=== PATIENT | female | born 2000 | race Caucasian/White ===

== ENCOUNTER 2020-12-17 07:26 | Day surgery (SDC) | payer OTHER ==
[~2020-12-17] VITALS: Ht 129.6 cm; Wt 65.7 kg
[2020-12-17] VITALS (9 sets, daily range): BP systolic 93–110; BP diastolic 48–73; PULSE 54–63; TEMP 98.5–99.1
[~2020-12-17 07:26] MED LIST: NO HOME MEDICATIONS
--- NOTE | 2020-12-17 07:45 | NUR ---
Patient arrived to floor escorted by ED staff. Changed and sitting in bed, patient reports no pain at this time. IV placed in LAC, 20G diffusics in one attempt, patient tolerated well.
[2020-12-17 08:32] LABS: COLLECTION METHOD CLEAN CATCH
[2020-12-17 08:42] LABS: MUCOUS Present /lpf; PH 5 (5-8); URINE APPEARANCE Hazy; URINE BACTERIA Rare /hpf; URINE BILIRUBIN Negative (NEGATIVE); URINE BLOOD 1+ (NEGATIVE); URINE COLOR Yellow; URINE GLUCOSE Negative (NEGATIVE); URINE KETONE 1+ (NEGATIVE); URINE LEUKOCYTE ESTERASE 2+ (NEGATIVE); URINE NITRATE Negative (NEGATIVE); URINE PROTEIN(semi-quant) Negative (NEGATIVE); URINE RBC 0-2 /hpf; URINE UROBILINOGEN Negative (NEGATIVE)
[2020-12-17] MEDS ORDERED: FLOMAX 0.40.4 MG/CAP PO (08:44)
[2020-12-17] MEDS ORDERED: PERCOCET 325 MG1 TA2 PO (08:46)
--- NOTE | 2020-12-17 09:15 | NUR ---
Patient left floor with PACU staff, remains in room.
--- NOTE | 2020-12-17 10:40 | NUR ---
Patient back to floor via bed from PACU. Post op checks initiated. Patient is resting well at this time, denies pain. Call light within reach.
[2020-12-17] MEDS ORDERED: NORCO 325 MG-51 TAB PO (11:29)
[2020-12-17] MEDS ORDERED: PYRIDIUM 100MG100 MG PO (11:29)
--- NOTE | 2020-12-17 14:18 | NUR ---
Plan is to return home with Spouse Tino Villarreal [phone]. Assessment: Client reports that she reside in [place] with her Fiance. Emerson eports that her mother [phone] and Father Narciso [phone] Franklin. RX Franco. Patient reports that she does have any DME use and has transportation home. Patient denies having any concerns with medications or obatianing them. Patient denies needing any care supports. Patient reports that she want to make sure that her pain is management. Action: To DC home, educated on supports available to her. No additional concern reported. NF.
--- NOTE | 2020-12-17 14:50 | NUR ---
Discharge teaching completed. Discussed follow up appointment, discharge medications, and discharge instructions; patient verbalized understanding. IV removed, catheter intact, hemostasis achieved. Patient dressed and escorted to ED entrance via wheelchair where she entered a private vehicle.
== END 2020-12-17 14:40 | disposition home or self-care (01) ==
LOC: SDCO 07:26 → SURG 08:00 → SDCO 09:30
PROVIDERS: Urology
DX: N20.1 Calculus of ureter (principal); F32.9 Major depressive disorder, single episode, unspecified; Z90.89 Acquired absence of other organs; Z79.899 Other long term (current) drug therapy
CPT/HCPCS: OP; C1769; C1894; J1100; J1885; J2270; J2405; J2704; J3010; Q9967

== ENCOUNTER 2021-06-19 11:05 | Emergency (ER) | payer OTHER ==
[~2021-06-19] VITALS: Ht 167.6 cm; Wt 61.8 kg
[~2021-06-19 11:05] MED LIST changes: +FLOMAX 0.40.4 MG/CAP PO; +NORCO 325 MG-51 TAB PO; +PERCOCET 325 MG1 TA2 PO; +PYRIDIUM 100MG100 MG PO
[2021-06-19 11:48] VITALS: TEMP 98.5
[2021-06-19 15:11] LABS: BASO % 0.5 % (0.0-2.0); EOS # 0.2 K/mm3 (0.0-0.7); EOS % 2.8 % (0-4.0); GRAN # 3.2 K/mm3 (1.4-6.5); GRAN % 56.9 % (42.2-75.2); HEMATOCRIT 40.7 % (37.0-47.0); HEMOGLOBIN 13.4 g/dl (12.5-16.0); LYMPH # 1.9 K/mm3 (1.2-3.4); LYMPH % 33.2 % (20.0-51.0); MEAN CELL VOLUME 91 fl (80.0-100.0); MEAN CORPUSCULAR HEMOGLOBIN 30 pg (27.0-31.0); MEAN CORPUSCULAR HGB CONC 33 g/dl (33.0-37.0); MEAN PLATELET VOLUME 11.9 fl (7.4-10.4); MONO # 0.4 K/mm3 (0.1-0.6); MONO % 6.2 % (1.7-9.3); PLATELET COUNT 178 K/mm3 (130-400); RED BLOOD COUNT 4.47 M/mm3 (4.10-5.30); REDCELL DISTRIBUTION WIDTH-CV 13.7 % (11.5-14.5)
[2021-06-19 15:28] LABS: BILIRUBIN,TOTAL 0.3 mg/dL (0.2-1.2); CALCIUM 9.3 mg/dL (8.4-10.2); CREATININE, serum 0.85 mg/dL (0.57-1.11); TOTAL PROTEIN 7.4 gm/dL (6.2-8.1)
[2021-06-19 15:59] LABS: COLLECTION METHOD CLEAN CATCH
[2021-06-19 16:10] LABS: MUCOUS Present (NOT PRESENT); PH 6 (5-8); SQUAMOUS EPITHELIAL 0-2 /hpf (0-10); URINE APPEARANCE Clear (CLEAR/HAZY); URINE BACTERIA None Seen (NONE SEEN); URINE BILIRUBIN Negative (NEGATIVE); URINE BLOOD Negative (NEGATIVE); URINE CALCIUM OXALATE CRYSTAL Present (NOT PRESENT); URINE COLOR Yellow (YELLOW); URINE GLUCOSE Negative (NEGATIVE); URINE KETONE Negative (NEGATIVE); URINE LEUKOCYTE ESTERASE Negative (NEGATIVE); URINE NITRATE Negative (NEGATIVE); URINE PROTEIN(semi-quant) Negative (NEGATIVE); URINE RBC 0-2 /hpf (0-2); URINE UROBILINOGEN Negative (NEGATIVE)
[2021-06-19] MEDS ORDERED: PERCOCET 325 MG1 TA2 PO (16:26)
[2021-06-19] MEDS ORDERED: PROMETHAZINE12.5 M5 PO (16:26)
[2021-06-19 17:02] VITALS: BP 109/69; PULSE 89
== END 2021-06-19 17:00 | disposition home or self-care (01) ==
LOC: COL.ER 11:05
PROVIDERS: Emergency Medicine; Physician Assistant
DX: N20.9 Urinary calculus, unspecified (principal); Z32.02 Encounter for pregnancy test, result negative
CPT/HCPCS: J2550; J7030